=== PATIENT | female | born 1975 | race Two or more races ===

== ENCOUNTER → 2025-03-21 09:40 | Outpatient (CLI) | payer OTHER | END | disposition home or self-care (01) | LOC: NUCLEAR 09:40 | PROVIDERS: ATTEND Internal Medicine Sports Medicine | DX: M81.0 Age-related osteoporosis without current pathological fracture (principal) ==

== ENCOUNTER 2025-03-21 10:14 | Outpatient (CLI) | payer OTHER | END 2025-03-21 10:22 | disposition home or self-care (01) | LOC: SONOGRAMA 10:14 | PROVIDERS: ATTEND Pathology Anatomic Pathology & Clinical Pathology | DX: E04.1 Nontoxic single thyroid nodule (principal); E04.9 Nontoxic goiter, unspecified; E03.9 Hypothyroidism, unspecified ==